=== PATIENT | female | born 1965 | race African-American/Black ===

== ENCOUNTER 2018-12-04 10:11 | Inpatient (IN) | payer OTHER ==
[2018-12-04 11:21] VITALS: BMI 26.5
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
[2018-12-04] MEDS ORDERED: MAGNESIUM CITRATE 300 ML BOTTLE PO PRN (12:42)
[2018-12-04] MEDS ORDERED: chlordiazePOXIDE HCL 10 MG CAPSULE PO PRN (12:42)
[2018-12-04] MEDS ORDERED: ACETAMINOPHEN 325 MG TABLET (FP) PO PRN ×2 (12:42)
[2018-12-04] MEDS ORDERED: IBUPROFEN 400 MG TABLET (FP) PO PRN (12:42)
[2018-12-04] MEDS ORDERED: hydrOXYzine PAMOATE 25 MG CAPSULE (FP) PO PRN (12:42)
[2018-12-04] MEDS ORDERED: MENTHOL/PHENOL 1 EACH UD MM PRN (12:42)
[2018-12-04] MEDS ORDERED: MAGNESIUM HYDROX 2400MG/30ML ORAL SUSPENSION 30 ML CUP PO PRN (12:42)
[2018-12-04] MEDS ORDERED: BISMUTH SUBSALICYLATE 262 MG/15 ML BTL PO PRN (12:42)
[2018-12-04] MEDS ORDERED: MAG HYDROX/AL HYDROX/SIMETH 30 ML UNIT-DOSE CUP PO PRN (12:42)
[2018-12-04] MEDS: chlordiazePOXIDE HCL 25 MG CAPSULE PO SCH ×2 (14:28→22:45)
[2018-12-04] MEDS: METHOCARBAMOL 500 MG TABLET PO PRN ×2 (14:29→22:45)
[2018-12-04 16:50] LABS: HEMATOCRIT 36.1 % (32.4-45.2); HEMOGLOBIN 11.7 GM/dL (10.7-15.3); MCH 26.8 pg (25.7-33.7); MCHC 32.3 g/dl (32.0-36.0); MEAN CELL VOLUME 83.1 fl (80-96); MEAN PLT VOLUME 7.6 fl (7.5-11.1); PLATELET COUNT 305 K/MM3 (134-434); RBC 4.35 M/mm3 (3.60-5.2); RDW 15.5 % (11.6-15.6); WHITE BLOOD COUNT 4.1 K/mm3 (4.0-10.0)
[2018-12-04 16:53] LABS: ALBUMIN 3.5 g/dl (3.4-5.0); BILIRUBIN,TOTAL 0.2 mg/dL (0.2-1); BLOOD UREA NITROGEN 16.1 mg/dL (7-18); CALCIUM 8.8 mg/dL (8.5-10.1); CREATININE 0.8 mg/dL (0.55-1.3); POTASSIUM 4.1 mmol/L (3.5-5.1); TOT PROT 6.7 g/dl (6.4-8.2)
[2018-12-04] MEDS: NICOTINE 21 MG/24 HOURS TOPICAL PATCH TD SCH (17:27)
[2018-12-04] MEDS: THIAMINE HCL 100 MG TABLET (FP) PO SCH (22:46)
[2018-12-04] MEDS: MELATONIN 5 MG TABLETS PO PRN (22:47)
[2018-12-05] MEDS: chlordiazePOXIDE HCL 25 MG CAPSULE PO SCH ×3 (06:54→22:45)
[2018-12-05] MEDS: NICOTINE 21 MG/24 HOURS TOPICAL PATCH TD SCH (10:10)
[2018-12-05] MEDS: PRENATAL VITAMINS W/ FOLIC ACID TABLET (FP) PO SCH (10:10)
[2018-12-05] MEDS: METHOCARBAMOL 500 MG TABLET PO PRN ×2 (10:12→18:41)
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
[2018-12-05] MEDS ORDERED: FLU VACCINE QUAD 60 MCG/0.5 ML (MDV 19-20) IM ONE (12:00)
--- NOTE | 2018-12-05 13:40 | PN ---
S CIWA - CIWA Score Nausea/Vomitin-No Nausea/No Vomiting Muscle Tremors: 4-Moderate,w/Arms Extend Anxiety: 4-Mod. Anxious/Guarded Agitation: 4-Moderately Restless Paroxysmal Sweats: 3 Orientation: 0-Oriented Tacttile Disturbances: 0-None Auditory Disturbances: 0-None Visual Disturbances: 0-None Headache: 0-None Present CIWA-Ar Total Score: 15 BHS Progress Note (SOAP) Subjective: sweats shakes anxiety interrupted sleep body aches Objective: 12/05/18 13:41 Vital Signs Temperature 98.1 F 12/05/18 09:41 Pulse Rate 70 12/05/18 09:41 Respiratory Rate 18 12/05/18 09:41 Blood Pressure 110/73 12/05/18 09:41 O2 Sat by Pulse Oximetry (%) Laboratory Tests 12/04/18 12/04/18 12/04/18 11:34 12:50 12:50 WBC 4.1 RBC 4.35 Hgb 11.7 Hct 36.1 MCV 83.1 MCH 26.8 MCHC 32.3 RDW 15.5 Plt Count 305 MPV 7.6 Sodium 140 Potassium 4.1 Chloride 106 Carbon Dioxide 30 Anion Gap 4 L BUN 16.1 Creatinine 0.8 Est GFR (CKD-EPI)AfAm 98.24 Est GFR (CKD-EPI)NonAf 84.76 Random Glucose 95 Calcium 8.8 Total Bilirubin 0.2 AST 10 L ALT 23 Alkaline Phosphatase 89 Total Protein 6.7 Albumin 3.5 POC Urine HCG, Qual Negative RPR Titer HIV 1&2 Ag/Ab, 4th Gen 12/04/18 12/04/18 12:50 12:50 WBC RBC Hgb Hct MCV MCH MCHC RDW Plt Count MPV Sodium Potassium Chloride Carbon Dioxide Anion Gap BUN Creatinine Est GFR (CKD-EPI)AfAm Est GFR (CKD-EPI)NonAf Random Glucose Calcium Total Bilirubin AST ALT Alkaline Phosphatase Total Protein Albumin POC Urine HCG, Qual RPR Titer Nonreactive HIV 1&2 Ag/Ab, 4th Gen Non reactive labs noted aaox3 ambulating with crutches no acute distress Assessment: 12/05/18 13:42 withdrawals Plan: continue detox with revised updated new regimen increase fluids
[2018-12-05] MEDS: QUEtiapine FUMARATE 50 MG TABLET PO SCH (22:45)
[2018-12-05] MEDS: THIAMINE HCL 100 MG TABLET (FP) PO SCH (22:45)
[2018-12-05] MEDS: MELATONIN 5 MG TABLETS PO PRN (22:45)
[2018-12-06] MEDS ORDERED: chlordiazePOXIDE HCL 10 MG CAPSULE PO SCH (05:00)
[2018-12-06] MEDS: METHOCARBAMOL 500 MG TABLET PO PRN ×3 (05:42→22:22)
[2018-12-06] MEDS: chlordiazePOXIDE HCL 25 MG CAPSULE PO SCH ×2 (05:42→10:14)
[2018-12-06] MEDS: NICOTINE 21 MG/24 HOURS TOPICAL PATCH TD SCH (10:14)
[2018-12-06] MEDS: PRENATAL VITAMINS W/ FOLIC ACID TABLET (FP) PO SCH (10:14)
--- NOTE | 2018-12-06 12:28 | PN ---
S CIWA - CIWA Score Nausea/Vomitin-No Nausea/No Vomiting Muscle Tremors: 2 Anxiety: 3 Agitation: 0-Normal Activity Paroxysmal Sweats: 3 Orientation: 0-Oriented Tacttile Disturbances: 0-None Auditory Disturbances: 0-None Visual Disturbances: 0-None Headache: 2-Mild CIWA-Ar Total Score: 10 BHS Progress Note (SOAP) Subjective: c/o anxiety, sweats, and headache. Objective: 12/06/18 12:26 Vital Signs 12/06/18 12/06/18 06:00 09:44 Temperature 97.9 F 98.9 F Pulse Rate 65 73 Respiratory 18 18 Rate Blood Pressure 113/73 98/62 Lab Results WBC 4.1 K/mm3 (4.0-10.0) 12/04/18 12:50 RBC 4.35 M/mm3 (3.60-5.2) 12/04/18 12:50 Hgb 11.7 GM/dL (10.7-15.3) 12/04/18 12:50 Hct 36.1 % (32.4-45.2) 12/04/18 12:50 MCV 83.1 fl (80-96) 12/04/18 12:50 MCHC 32.3 g/dl (32.0-36.0) 12/04/18 12:50 RDW 15.5 % (11.6-15.6) 12/04/18 12:50 Plt Count 305 K/MM3 (134-434) 12/04/18 12:50 Sodium 140 mmol/L (136-145) 12/04/18 12:50 Potassium 4.1 mmol/L (3.5-5.1) 12/04/18 12:50 Chloride 106 mmol/L (98-107) 12/04/18 12:50 Carbon Dioxide 30 mmol/L (21-32) 12/04/18 12:50 Anion Gap 4 MMOL/L (8-16) L 12/04/18 12:50 BUN 16.1 mg/dL (7-18) 12/04/18 12:50 Creatinine 0.8 mg/dL (0.55-1.3) 12/04/18 12:50 Random Glucose 95 mg/dL (74-106) 12/04/18 12:50 Calcium 8.8 mg/dL (8.5-10.1) 12/04/18 12:50 Labs noted. Assessment: 12/06/18 12:27 AOX3, in no acute respiratory distress. Full ROM, ambulating in the unit. Withdrawal symptoms. Right foot with a cast. Plan: continue detox.
[2018-12-06] MEDS: QUEtiapine FUMARATE 50 MG TABLET PO SCH (22:23)
[2018-12-06] MEDS: THIAMINE HCL 100 MG TABLET (FP) PO SCH (22:23)
[2018-12-07] MEDS ORDERED: chlordiazePOXIDE HCL 10 MG CAPSULE PO ONE (05:00)
[2018-12-07] MEDS: chlordiazePOXIDE 5 MG CAPSULE PO SCH ×3 (05:43→17:43)
[2018-12-07] MEDS: METHOCARBAMOL 500 MG TABLET PO PRN ×2 (05:57→17:44)
[2018-12-07] MEDS: PRENATAL VITAMINS W/ FOLIC ACID TABLET (FP) PO SCH (10:30)
[2018-12-07] MEDS: NICOTINE 21 MG/24 HOURS TOPICAL PATCH TD SCH (10:30)
--- NOTE | 2018-12-07 16:05 | PN ---
[facility] CIWA - CIWA Score Nausea/Vomitin-Mild Nausea/No Vomiting Muscle Tremors: 2 Anxiety: 2 Agitation: 2 Paroxysmal Sweats: 2 Orientation: 0-Oriented Tacttile Disturbances: 0-None Auditory Disturbances: 0-None Visual Disturbances: 0-None Headache: 0-None Present CIWA-Ar Total Score: 9 BHS Progress Note (SOAP) Subjective: Feels ok, medication helpful Objective: 12/07/18 16:02 Last Vital Signs Temp Pulse Resp BP Pulse Ox 98.4 F 85 18 110/60 12/07/18 14:37 12/07/18 14:37 12/07/18 14:37 12/07/18 14:37 Laboratory Tests 12/04/18 12/04/18 12/04/18 11:34 12:50 12:50 WBC 4.1 RBC 4.35 Hgb 11.7 Hct 36.1 MCV 83.1 MCH 26.8 MCHC 32.3 RDW 15.5 Plt Count 305 MPV 7.6 Sodium 140 Potassium 4.1 Chloride 106 Carbon Dioxide 30 Anion Gap 4 L BUN 16.1 Creatinine 0.8 Est GFR (CKD-EPI)AfAm 98.24 Est GFR (CKD-EPI)NonAf 84.76 Random Glucose 95 Calcium 8.8 Total Bilirubin 0.2 AST 10 L ALT 23 Alkaline Phosphatase 89 Total Protein 6.7 Albumin 3.5 POC Urine HCG, Qual Negative RPR Titer HIV 1&2 Ag/Ab, 4th Gen 12/04/18 12/04/18 12:50 12:50 WBC RBC Hgb Hct MCV MCH MCHC RDW Plt Count MPV Sodium Potassium Chloride Carbon Dioxide Anion Gap BUN Creatinine Est GFR (CKD-EPI)AfAm Est GFR (CKD-EPI)NonAf Random Glucose Calcium Total Bilirubin AST ALT Alkaline Phosphatase Total Protein Albumin POC Urine HCG, Qual RPR Titer Nonreactive HIV 1&2 Ag/Ab, 4th Gen Non reactive Labs reviewed Assessment: 12/07/18 16:05 Withdrawal sxs Plan: Continue detox Encouraged PO water intake
[2018-12-07] MEDS: QUEtiapine FUMARATE 50 MG TABLET PO SCH (22:09)
[2018-12-07] MEDS: THIAMINE HCL 100 MG TABLET (FP) PO SCH (22:09)
[2018-12-07] MEDS: MELATONIN 5 MG TABLETS PO PRN (22:10)
[2018-12-08] MEDS ORDERED: chlordiazePOXIDE HCL 10 MG CAPSULE PO PRN
[2018-12-08] MEDS: chlordiazePOXIDE HCL 10 MG CAPSULE PO SCH ×2 (06:17→10:50)
[2018-12-08] MEDS: METHOCARBAMOL 500 MG TABLET PO PRN (06:18)
[2018-12-08 09:41] VITALS: BP 108/62; PULSE 80; TEMP 98.1
--- NOTE | 2018-12-08 09:55 | DS ---
[facility] Detox Discharge Summary Admission Date: 12/04/18 Discharge Date: 12/08/18 - History Present History: Alcohol Dependence, Cannabis Dependence, Cocaine Dependence, Opioid Dependence - Physical Exam Results Vital Signs: Vital Signs Temperature 98.1 F 12/08/18 09:40 Pulse Rate 80 12/08/18 09:40 Respiratory Rate 16 12/08/18 09:40 Blood Pressure 108/62 12/08/18 09:40 O2 Sat by Pulse Oximetry (%) Pertinent Admission Physical Exam Findings: pt arrived in withdrawals Vital Signs Temperature 98.1 F 12/08/18 09:40 Pulse Rate 80 12/08/18 09:40 Respiratory Rate 16 12/08/18 09:40 Blood Pressure 108/62 12/08/18 09:40 O2 Sat by Pulse Oximetry (%) Laboratory Tests 12/04/18 12/04/18 12/04/18 11:34 12:50 12:50 WBC 4.1 RBC 4.35 Hgb 11.7 Hct 36.1 MCV 83.1 MCH 26.8 MCHC 32.3 RDW 15.5 Plt Count 305 MPV 7.6 Sodium 140 Potassium 4.1 Chloride 106 Carbon Dioxide 30 Anion Gap 4 L BUN 16.1 Creatinine 0.8 Est GFR (CKD-EPI)AfAm 98.24 Est GFR (CKD-EPI)NonAf 84.76 Random Glucose 95 Calcium 8.8 Total Bilirubin 0.2 AST 10 L ALT 23 Alkaline Phosphatase 89 Total Protein 6.7 Albumin 3.5 POC Urine HCG, Qual Negative RPR Titer HIV 1&2 Ag/Ab, 4th Gen 12/04/18 12/04/18 12:50 12:50 WBC RBC Hgb Hct MCV MCH MCHC RDW Plt Count MPV Sodium Potassium Chloride Carbon Dioxide Anion Gap BUN Creatinine Est GFR (CKD-EPI)AfAm Est GFR (CKD-EPI)NonAf Random Glucose Calcium Total Bilirubin AST ALT Alkaline Phosphatase Total Protein Albumin POC Urine HCG, Qual RPR Titer Nonreactive HIV 1&2 Ag/Ab, 4th Gen Non reactive pt is aaox3 ambulating no acute distress no s/s of withdrawals - Treatment Hospital Course: Detox Protocol Followed, Detoxed Safely, Responded well, Discharged Condition Good, Rehab Referral Accepted Patient has Accepted a Rehab Referral to: pt declined rehab; referral provided - Medication Discharge Medications: Ambulatory Orders NK [No Known Home Medication] 09/20/14 - Diagnosis (1) Alcohol dependence Current Visit: Yes Status: Chronic (2) Cocaine dependence Current Visit: Yes Status: Chronic (3) Substance induced mood disorder Current Visit: Yes Status: Acute (4) Substance-induced sleep disorder Current Visit: Yes Status: Acute (5) Cannabis dependence Current Visit: Yes Status: Acute (6) Nicotine dependence Current Visit: Yes Status: Chronic Qualifiers: Nicotine product type: cigarettes Substance use status: uncomplicated Qualified Code(s): F17.210 - Nicotine dependence, cigarettes, uncomplicated (7) Syncope Current Visit: No Status: Acute (8) PTSD (post-traumatic stress disorder) Current Visit: No Status: Suspected (9) Foot fracture, right Current Visit: Yes Status: Acute Qualifiers: Encounter type: initial encounter Fracture type: closed Qualified Code(s) : S92.901A - Unspecified fracture of right foot, initial encounter for closed fracture - AMA Did Patient Leave Against Medical Advice: No
[2018-12-08] MEDS: NICOTINE 21 MG/24 HOURS TOPICAL PATCH TD SCH (10:51)
[2018-12-08] MEDS: PRENATAL VITAMINS W/ FOLIC ACID TABLET (FP) PO SCH (10:51)
[2018-12-09] MEDS ORDERED: chlordiazePOXIDE HCL 10 MG CAPSULE PO ONE (05:00)
== END 2018-12-08 11:35 | disposition home or self-care (01) | DRG 774 ==
LOC: YASAS 10:11 → Y6N 12:57
PROVIDERS: ADMIT Allergy & Immunology; ATTEND Allergy & Immunology
PROC: HZ2ZZZZ Detoxification Services for Substance Abuse Treatment (ICD-10-PCS; principal; 2018-12-04)
DX: F10.230 Alcohol dependence with withdrawal, uncomplicated (principal); F14.20 Cocaine dependence, uncomplicated; F12.20 Cannabis dependence, uncomplicated; F17.210 Nicotine dependence, cigarettes, uncomplicated; F19.282 Other psychoactive substance dependence with psychoactive substance-induced sleep disorder; F19.24 Other psychoactive substance dependence with psychoactive substance-induced mood disorder; F43.10 Post-traumatic stress disorder, unspecified; J45.909 Unspecified asthma, uncomplicated; S92.811D Other fracture of right foot, subsequent encounter for fracture with routine healing; W03.XXXD Other fall on same level due to collision with another person, subsequent encounter; Z99.3 Dependence on wheelchair; Z99.89 Dependence on other enabling machines and devices
CPT/HCPCS: 36415; 80053; 81025; 85027; 86593; 87389; Q2036

== ENCOUNTER 2019-10-07 14:03 | Inpatient (IN) | payer OTHER ==
[2019-10-07 16:23] VITALS: BMI 26.5
--- NOTE | 2019-10-07 17:07 | HP ---
CIWA Score Nausea/Vomitin Muscle Tremors: 4-Moderate,w/Arms Extend Anxiety: 1-Mildly Anxious Agitation: 1-Slight > Activity Paroxysmal Sweats: 3 Orientation: 1-Uncertain about Date Tacttile Disturbances: 0-None Auditory Disturbances: 0-None Visual Disturbances: 0-None Headache: 0-None Present CIWA-Ar Total Score: 13 - Admission Criteria OASAS Guidelines: Admission for Medically Managed Detox: Requires at least one of the followin. CIWA greater than 12 2. Seizures within the past 24 hours 3. Delirium tremens within the past 24 hours 4. Hallucinations within the past 24 hours 5. Acute intervention needed for co occurring medical disorder 6. Acute intervention needed for co occurring psychiatric disorder 7. Severe withdrawal that cannot be handled at a lower level of care (continued vomiting, continued diarrhea, abnormal vital signs) requiring intravenous medication and/or fluids 8. Admitting History and Physical - Admission Chief Complaint: alcohol, crack detox History of Present Illness: CC: detox for alcohol, crack, benzo's, marijuana HPI: Shar is a 54 year old woman PMH of asthma, polysubstance abuse (alcohol, crack, benzo's, marijuana, nicotine), who presents for detox. She has attempted detox several times, and was last admitted at [facility] from 12/04/18 to 12/08/18. No recent illnesses, hospitalizations, or injuries. She is complaining of vaginal pruritis and requests medication. Substance Use History: Substance: Alcohol Amount: 6 pack beer, three 12 ounce bottles of vodka Route: oral Last Use: 10/06/19 First Use: 20 No seizures, positive eye weight calculator Substance: Crack Amount:$200/day Route: sm Last Use: 10/06/19 First Use: Substance: Benzo's Amount:1-2 tablets/day Route: oral Last Use: 10/06/19 Substance: Marijuana Amount: 1 bag/day Last Use: 10/06/19 Substance: Nicotine Amount: 1 pack/day PMH: Asthma PSH: Ovarian cystectomy (right side), oophorectomy Psych: History of bipolar disorder, previously on seroquel 100 Social: Homeless 4 months Legal: None History Source: Patient Limitations to Obtaining History: No Limitations - Past Medical History ...LMP: 09/06/14 - Smoking History Smoking history: Current every day smoker Have you smoked in the past 12 months: Yes Aproximately how many cigarettes per day: 10 - Alcohol/Substance Use Hx Alcohol Use: Yes History of Substance Use: reports: Marijuana - Social History Usual Living Arrangement: Yes: Other (homeless the past 4 months) Admission [facility] Chief Complaint: detox for alcohol, crack, benzo's, marijuana Allergies/Adverse Reactions: Allergies Allergy/AdvReac Type Severity Reaction Status Date / Time No Known Allergies Allergy Verified 12/04/18 11:14 History of Present Illness: CC: detox for alcohol, crack, benzo's, marijuana HPI: Shar is a 54 year old woman PMH of asthma, polysubstance abuse (alcohol, crack, benzo's, marijuana, nicotine), who presents for detox. She has attempted detox several times, and was last admitted at [facility] from 12/04/18 to 12/08/18. No recent illnesses, hospitalizations, or injuries. She is complaining of vaginal pruritis and requests medication. Substance Use History: Substance: Alcohol Amount: 6 pack beer, three 12 ounce bottles of vodka Route: oral Last Use: 10/06/19 First Use: 19 No seizures, positive eye weight calculator Substance: Crack Amount:$200/day Route: sm Last Use: 10/06/19 First Use: Substance: Benzo's Amount:1-2 tablets/day Route: oral Last Use: 10/06/19 Substance: Marijuana Amount: 1 bag/day Last Use: 10/06/19 Substance: Nicotine Amount: 1 pack/day PMH: Asthma PSH: Ovarian cystectomy (right side), oophorectomy Psych: History of bipolar disorder, previously on seroquel 100 Social: Homeless 4 months Legal: None Exam Limitations: No Limitations - Ebola screening Have you traveled outside of the country in the last 21 days: No Have you had contact with anyone from an Ebola affected area: No Have you been sick,other than usual withdrawal symptoms: No Do you have a fever: No - Review of Systems EENT: denies: Eye Pain, Ear Pain, Nose Congestion Respiratory: denies: Cough, Shortness of Breath Cardiac: denies: Chest Pain GI: denies: Constipated, Diarrhea, Nausea, Vomiting : reports: Other (vaginal pruritis) Musculoskeletal: denies: Back Pain, Joint Pain Integumentary: reports: Pruritus (vaginal pruritis) Neuro: denies: Headache, Numbness Endocrine: reports: No Symptoms Reported Hematology: denies: Blood Clots Psychiatric: reports: Orientated x3 Patient History - Patient Medical History Hx Anemia: No Hx Asthma: Yes Hx Chronic Obstructive Pulmonary Disease (COPD): No Hx Cancer: No Hx Cardiac Disorders: No Hx Congestive Heart Failure: No Hx Hypertension: No Hx Hypercholesterolemia: No Hx Pacemaker: No HX Cerebrovascular Accident: No Hx Seizures: No Hx Dementia: No Hx Diabetes: No Hx Gastrointestinal Disorders: No Hx Liver Disease: No Hx Genitourinary Disorders: No Hx Sexually Transmitted Disorders: No Hx Renal Disease (ESRD): No Hx Thyroid Disease: No Hx Human Immunodeficiency Virus (HIV): No (LAST NEGATIVE IN 07/02) Hx Hepatitis C: No Hx Depression: Yes Hx Suicide Attempt: No Hx Bipolar Disorder: No Hx Schizophrenia: No - Patient Surgical History Past Surgical History: Yes Hx Neurologic Surgery: No Hx Cataract Extraction: No Hx Cardiac Surgery: No Hx Lung Surgery: No Hx Breast Surgery: No Hx Breast Biopsy: No Hx Abdominal Surgery: No Hx Appendectomy: No Hx Cholecystectomy: No Hx Genitourinary Surgery: No Hx Section: No Hx Orthopedic Surgery: No Other Surgical History: SURGERY FOR OVARIAN CYST RIGHT 30 YEARS AGO Anesthesia Reaction: No - PPD History Date: 12/06/18 Results: Negative - Reproductive History Last Menstrual Period: 09/06/14 - Smoking Cessation Smoking history: Current every day smoker Have you smoked in the past 12 months: Yes Aproximately how many cigarettes per day: 5 Cigars Per Day: 0 Hx Chewing Tobacco Use: No Initiated information on smoking cessation: Yes 'Breaking Loose' booklet given: 10/07/19 Admission Physical Exam S - Vital Signs Vital Signs: Vital Signs - 24 hr 10/07/19 16:21 Temperature 97.1 F L Pulse Rate 72 Respiratory 19 Rate Blood Pressure 128/80 - Physical General Appearance: Yes: Within Normal Limits, Disheveled, Anxious HEENTM: Yes: Hearing grossly Normal, Normocephalic, Normal Voice, KEMAL Respiratory: Yes: Rhonchi (bilateral rhonchi present) Neck: Yes: Within Normal Limits Breast: Yes: Breast Exam Deferred Cardiology: Yes: Within Normal Limits, Regular Rhythm, Regular Rate, S1, S2 Abdominal: Yes: Non Tender, Flat, Soft Genitourinary: Yes: [place] Back: Yes: Within Normal Limits Musculoskeletal: Yes: Within Normal Limits, full range of Motion, Gait Steady Extremities: Yes: Within Normal Limits, Normal Inspection, Normal Range of Motion, Non-Tender, Tremors. No: Coldness, Cyanosis Neurological: Yes: Within Normal Limits, Alert, Motor Strength 5/5, Normal Mood/Affect, Normal Response Integumentary: Yes: Within Normal Limits, Normal Color, Dry, Warm - Diagnostic (1) Alcohol withdrawal Current Visit: Yes Status: Acute Qualifiers: Complication of substance-induced condition: uncomplicated Qualified Code(s): F10.230 - Alcohol dependence with withdrawal, uncomplicated (2) Cocaine dependence Current Visit: Yes Status: Acute (3) Nicotine dependence Current Visit: Yes Status: Chronic Qualifiers: Nicotine product type: cigarettes Substance use status: uncomplicated Qualified Code(s): F17.210 - Nicotine dependence, cigarettes, uncomplicated Cleared for Admission S - Detox or Rehab [facility] Level of Care: Medically Managed Screened but not Admitted - Documentation of Visit Screened but not Admitted: No Breathalyzer - Breathalyzer Breathalyzer: 0 Urine Drug Screen - Test Device Lot number: [id number] Expiration date: 05/26/21 - Control Is test valid?: Yes - Results Drug screen NEGATIVE: No Urine drug screen results: THC-Marijuana, SHOLA-Cocaine Inpatient Rehab Admission - Rehab Decision to Admit Inpatient rehab admission?: No
[2019-10-07] MEDS ORDERED: IBUPROFEN 400 MG TABLET (FP) PO PRN (17:26)
[2019-10-07] MEDS ORDERED: MAGNESIUM CITRATE 300 ML BOTTLE PO PRN (17:26)
[2019-10-07] MEDS ORDERED: METHOCARBAMOL 500 MG TABLET PO PRN (17:26)
[2019-10-07] MEDS ORDERED: BISMUTH SUBSALICYLATE 524 MG/30 ML UD PO PRN (17:26)
[2019-10-07] MEDS ORDERED: MENTHOL/PHENOL 1 EACH UD MM PRN (17:26)
[2019-10-07] MEDS ORDERED: ONDANSETRON *ODT* 4 MG TABLET SL ONE (17:26)
[2019-10-07] MEDS ORDERED: NICOTINE POLACRILEX 2 MG GUM BUC PRN (17:26)
[2019-10-07] MEDS ORDERED: MAG HYDROX/AL HYDROX/SIMETH 30 ML UNIT-DOSE CUP PO PRN (17:26)
[2019-10-07] MEDS ORDERED: ONDANSETRON *ODT* 4 MG TABLET SL PRN (17:26)
[2019-10-07] MEDS ORDERED: chlordiazePOXIDE HCL 25 MG CAPSULE PO PRN (17:26)
[2019-10-07] MEDS ORDERED: MAGNESIUM HYDROX 2400MG/30ML ORAL SUSPENSION 30 ML CUP PO PRN (17:26)
[2019-10-07] MEDS ORDERED: ACETAMINOPHEN 325 MG TABLET (FP) PO PRN ×2 (17:26)
[2019-10-07] MEDS ORDERED: ALBUTEROL SO4 HFA INHALER IH PRN (17:44)
[2019-10-07] MEDS ORDERED: FLUCONAZOLE 150 MG TABLET PO ONE (18:30)
--- NOTE | 2019-10-07 18:30 | PN ---
Teaching Attending Note Name of Resident: Muna Diaz ATTENDING PHYSICIAN STATEMENT I saw and evaluated the patient. I reviewed the resident's note and discussed the case with the resident. I agree with the resident's findings and plan as documented. SUBJECTIVE: 53 year old female here for etoh detox , + BLACKOUTS , DENIES SEIZURES , + TREMORS . c/o vaginal d/c Cocaine: $50 via inhalation , denies IV use , first age of use 20 . Cigarettes: 1/ ppd Heroin: last used in 2014 via inhalation , denies mmtp . Benzos: denies use PMHx : asthma, R foot (fractured 5th metatarsal) 2/2 mechanical fall, fall while intoxicated 1 yr ago w/ right hand frx casted, ovarian cyst, oophorectomy , Psych hx : ptsd, depression Family: mother d. DM and ESRD 60's , father d. etoh abuse complications 50's Work: On disability since 2 yr ago 2/2 feet problems and psych hx , former factor worker Live: [place] OBJECTIVE: wnwd , onychomycosis , hammer toes , hallux valgus . Vital Signs - 24 hr 10/07/19 10/07/19 16:21 17:36 Temperature 97.1 F L 97.1 F L Pulse Rate 72 72 Respiratory 19 19 Rate Blood Pressure 128/80 128/80 ASSESSMENT AND PLAN: AUD - Librium detox
[2019-10-07] MEDS: NICOTINE 14 MG/24 HOURS TOPICAL PATCH TD SCH (19:11)
[2019-10-07] MEDS: chlordiazePOXIDE HCL 25 MG CAPSULE PO SCH (22:11)
[2019-10-07] MEDS: THIAMINE HCL 100 MG TABLET (FP) PO SCH (22:11)
[2019-10-07] MEDS: MELATONIN 5 MG TABLETS PO SCH (22:11)
[2019-10-07] MEDS: MICONAZOLE NITRATE 14 GM/TUBE TUBE TP SCH (22:14)
[2019-10-08] MEDS: chlordiazePOXIDE HCL 25 MG CAPSULE PO SCH ×4 (06:09→22:41)
[2019-10-08] MEDS: PRENATAL VITAMINS W/ FOLIC ACID TABLET (FP) PO SCH (10:35)
[2019-10-08] MEDS: NICOTINE 14 MG/24 HOURS TOPICAL PATCH TD SCH (10:35)
[2019-10-08 10:39] LABS: HEMATOCRIT 33.5 % (32.4-45.2); MCH 26.9 pg (25.7-33.7); MCHC 32.8 g/dl (32.0-36.0); MEAN CELL VOLUME 81.9 fl (80-96); MEAN PLT VOLUME 7.5 fl (7.5-11.1); PLATELET COUNT 289 K/MM3 (134-434); RBC 4.09 M/mm3 (3.60-5.2); RDW 15.9 % (11.6-15.6); WHITE BLOOD COUNT 3.6 K/mm3 (4.0-10.0)
[2019-10-08 10:52] LABS: ALBUMIN 2.9 g/dl (3.4-5.0); BILIRUBIN,TOTAL 0.9 mg/dL (0.2-1); BLOOD UREA NITROGEN 14.1 mg/dL (7-18); CALCIUM 8.7 mg/dL (8.5-10.1); CREATININE 0.8 mg/dL (0.55-1.3); POTASSIUM 4.1 mmol/L (3.5-5.1); TOT PROT 5.7 g/dl (6.4-8.2)
--- NOTE | 2019-10-08 12:18 | PN ---
[facility] CIWA - CIWA Score Nausea/Vomitin-No Nausea/No Vomiting Muscle Tremors: 3 Anxiety: 2 Agitation: 3 Paroxysmal Sweats: 3 Orientation: 0-Oriented Tacttile Disturbances: 0-None Auditory Disturbances: 0-None Visual Disturbances: 0-None Headache: 0-None Present CIWA-Ar Total Score: 11 S Progress Note (SOAP) Subjective: sweats shakes chills body aches interrupted sleep Objective: 10/08/19 12:12 Vital Signs Temperature 98.4 F 10/08/19 08:34 Pulse Rate 73 10/08/19 08:34 Respiratory Rate 20 10/08/19 08:34 Blood Pressure 101/54 L 10/08/19 08:34 O2 Sat by Pulse Oximetry (%) 96 10/08/19 05:37 Laboratory Tests 10/07/19 10/08/19 10/08/19 16:22 08:00 08:00 WBC 3.6 L RBC 4.09 Hgb 11.0 Hct 33.5 MCV 81.9 MCH 26.9 MCHC 32.8 RDW 15.9 H Plt Count 289 MPV 7.5 Sodium Potassium Chloride Carbon Dioxide Anion Gap BUN Creatinine Est GFR (CKD-EPI)AfAm Est GFR (CKD-EPI)NonAf Random Glucose Calcium Total Bilirubin AST ALT Alkaline Phosphatase Total Protein Albumin POC Urine HCG, Qual Negative Syphilis Serology Reactive A* 10/08/19 08:00 WBC RBC Hgb Hct MCV MCH MCHC RDW Plt Count MPV Sodium 143 Potassium 4.1 Chloride 110 H Carbon Dioxide 26 Anion Gap 6 L BUN 14.1 Creatinine 0.8 Est GFR (CKD-EPI)AfAm 97.55 Est GFR (CKD-EPI)NonAf 84.17 Random Glucose 82 Calcium 8.7 Total Bilirubin 0.9 AST 6 L ALT 16 Alkaline Phosphatase 59 Total Protein 5.7 L Albumin 2.9 L POC Urine HCG, Qual Syphilis Serology labs noted aaox3 ambulating no acute distress syphilis rpr pending Assessment: 10/08/19 12:18 withdrawals Plan: continue detox increase fluids
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
[2019-10-08] MEDS: MICONAZOLE NITRATE 14 GM/TUBE TUBE TP SCH ×2 (13:57→22:43)
[2019-10-08] MEDS: QUEtiapine FUMARATE 50 MG TABLET PO SCH (22:41)
[2019-10-08] MEDS: THIAMINE HCL 100 MG TABLET (FP) PO SCH (22:41)
[2019-10-08] MEDS: MELATONIN 5 MG TABLETS PO SCH (22:41)
[2019-10-09] MEDS: chlordiazePOXIDE HCL 25 MG CAPSULE PO SCH ×4 (06:28→22:29)
[2019-10-09] MEDS: PRENATAL VITAMINS W/ FOLIC ACID TABLET (FP) PO SCH (10:42)
[2019-10-09] MEDS: MICONAZOLE NITRATE 14 GM/TUBE TUBE TP SCH ×2 (10:42→22:30)
[2019-10-09] MEDS: NICOTINE 14 MG/24 HOURS TOPICAL PATCH TD SCH (10:42)
--- NOTE | 2019-10-09 10:49 | PN ---
S CIWA - CIWA Score Nausea/Vomitin-Mild Nausea/No Vomiting Muscle Tremors: 2 Anxiety: 1-Mildly Anxious Agitation: 1-Slight > Activity Paroxysmal Sweats: No Perspiration Orientation: 0-Oriented Tacttile Disturbances: 0-None Auditory Disturbances: 0-None Visual Disturbances: 0-None Headache: 1-Very Mild CIWA-Ar Total Score: 6 [facility] Progress Note (SOAP) Subjective: pt admitted for alcohol detox. h/o polysubstance use. O: Vital Signs - 24 hr 10/08/19 10/08/19 10/08/19 13:12 17:10 20:54 Temperature 97.7 F 98.2 F Pulse Rate 71 72 Respiratory 18 18 Rate Blood Pressure 104/63 119/73 O2 Sat by Pulse 98 97 Oximetry (%) 10/09/19 10/09/19 06:18 08:37 Temperature 97.7 F 97.7 F Pulse Rate 68 84 Respiratory 18 16 Rate Blood Pressure 111/70 129/79 O2 Sat by Pulse 97 Oximetry (%) Laboratory Tests 10/07/19 10/08/19 10/08/19 16:22 08:00 08:00 WBC 3.6 L RBC 4.09 Hgb 11.0 Hct 33.5 MCV 81.9 MCH 26.9 MCHC 32.8 RDW 15.9 H Plt Count 289 MPV 7.5 Sodium Potassium Chloride Carbon Dioxide Anion Gap BUN Creatinine Est GFR (CKD-EPI)AfAm Est GFR (CKD-EPI)NonAf Random Glucose Calcium Total Bilirubin AST ALT Alkaline Phosphatase Total Protein Albumin POC Urine HCG, Qual Negative Syphilis Serology Reactive A* RPR Titer 10/08/19 10/08/19 08:00 08:00 WBC RBC Hgb Hct MCV MCH MCHC RDW Plt Count MPV Sodium 143 Potassium 4.1 Chloride 110 H Carbon Dioxide 26 Anion Gap 6 L BUN 14.1 Creatinine 0.8 Est GFR (CKD-EPI)AfAm 97.55 Est GFR (CKD-EPI)NonAf 84.17 Random Glucose 82 Calcium 8.7 Total Bilirubin 0.9 AST 6 L ALT 16 Alkaline Phosphatase 59 Total Protein 5.7 L Albumin 2.9 L POC Urine HCG, Qual Syphilis Serology RPR Titer Reactive 1:1 H D mild anemia pos low 1:1 RPR pos low albumin a/p: AUD- continue alcohol detox- malnourished with low albumin and protein- encourage food intake
[2019-10-09] MEDS: QUEtiapine FUMARATE 50 MG TABLET PO SCH (22:29)
[2019-10-09] MEDS: THIAMINE HCL 100 MG TABLET (FP) PO SCH (22:29)
[2019-10-09] MEDS: MELATONIN 5 MG TABLETS PO SCH (22:29)
[2019-10-10] MEDS ORDERED: chlordiazePOXIDE HCL 10 MG CAPSULE PO PRN
[2019-10-10] MEDS: chlordiazePOXIDE HCL 10 MG CAPSULE PO SCH ×2 (06:30→10:39)
[2019-10-10] MEDS: NICOTINE 14 MG/24 HOURS TOPICAL PATCH TD SCH (10:38)
[2019-10-10] MEDS: PRENATAL VITAMINS W/ FOLIC ACID TABLET (FP) PO SCH (10:40)
[2019-10-10] MEDS: MICONAZOLE NITRATE 14 GM/TUBE TUBE TP SCH (10:40)
[2019-10-10 10:48] VITALS: BP 103/65; PULSE 79; TEMP 97.5
--- NOTE | 2019-10-10 12:43 | DS ---
[facility] Detox Discharge Summary Admission Date: 10/07/19 Discharge Date: 10/10/19 - History Present History: Alcohol Dependence, Cannabis Dependence, Cocaine Dependence Additional Comments: Alert and oriented x 3, in no acute respiratory distress. Full ROM, ambulating in the unit without assistance. Withdrawal symptoms. Wanted to leave against medical advice, encouraged to stay but refused. Pertinent Past History: History of Asthma, alcohol, crack, benzo, Cannabis and nicotine use disorder - Physical Exam Results Vital Signs: Vital Signs Temperature 97.5 F L 10/10/19 08:59 Pulse Rate 79 10/10/19 08:59 Respiratory Rate 20 10/10/19 08:59 Blood Pressure 103/65 10/10/19 08:59 O2 Sat by Pulse Oximetry (%) 96 10/10/19 08:59 Vital Signs 10/10/19 08:59 Temperature 97.5 F L Pulse Rate 79 Respiratory 20 Rate Blood Pressure 103/65 O2 Sat by Pulse 96 Oximetry (%) Laboratory Last Values WBC 3.6 K/mm3 (4.0-10.0) L 10/08/19 08:00 RBC 4.09 M/mm3 (3.60-5.2) 10/08/19 08:00 Hgb 11.0 GM/dL (10.7-15.3) 10/08/19 08:00 Hct 33.5 % (32.4-45.2) 10/08/19 08:00 MCV 81.9 fl (80-96) 10/08/19 08:00 MCH 26.9 pg (25.7-33.7) 10/08/19 08:00 MCHC 32.8 g/dl (32.0-36.0) 10/08/19 08:00 RDW 15.9 % (11.6-15.6) H 10/08/19 08:00 Plt Count 289 K/MM3 (134-434) 10/08/19 08:00 MPV 7.5 fl (7.5-11.1) 10/08/19 08:00 Sodium 143 mmol/L (136-145) 10/08/19 08:00 Potassium 4.1 mmol/L (3.5-5.1) 10/08/19 08:00 Chloride 110 mmol/L (98-107) H 10/08/19 08:00 Carbon Dioxide 26 mmol/L (21-32) 10/08/19 08:00 Anion Gap 6 MMOL/L (8-16) L 10/08/19 08:00 BUN 14.1 mg/dL (7-18) 10/08/19 08:00 Creatinine 0.8 mg/dL (0.55-1.3) 10/08/19 08:00 Est GFR (CKD-EPI)AfAm 97.55 10/08/19 08:00 Est GFR (CKD-EPI)NonAf 84.17 10/08/19 08:00 Random Glucose 82 mg/dL (74-106) 10/08/19 08:00 Calcium 8.7 mg/dL (8.5-10.1) 10/08/19 08:00 Total Bilirubin 0.9 mg/dL (0.2-1) 10/08/19 08:00 AST 6 U/L (15-37) L 10/08/19 08:00 ALT 16 U/L (13-61) 10/08/19 08:00 Alkaline Phosphatase 59 U/L (45-117) 10/08/19 08:00 Total Protein 5.7 g/dl (6.4-8.2) L 10/08/19 08:00 Albumin 2.9 g/dl (3.4-5.0) L 10/08/19 08:00 POC Urine HCG, Qual Negative 10/07/19 16:22 Syphilis Serology Reactive (NONREACTIVE) A* 10/08/19 08:00 RPR Titer Reactive 1:1 (NONREACTIVE) H D 10/08/19 08:00 COVID-19 (ZACK) Not detected (Not Detected) 10/07/19 20:20 Labs noted. Pertinent Admission Physical Exam Findings: Withdrawal symptoms. - Medication Discharge Medications: Ambulatory Orders Albuterol Sulfate [Proventil Hfa] 1 puff PO PRN PRN 10/07/19 Quetiapine Fumarate [Seroquel -] 100 mg PO DAILY 10/07/19 - Diagnosis (1) Alcohol dependence, uncomplicated Status: Acute (2) Cannabis dependence Status: Chronic (3) Cocaine dependence Status: Chronic (4) Alcohol dependence Status: Chronic (5) Asthma Status: Chronic (6) Nicotine dependence Status: Chronic Qualifiers: Nicotine product type: cigarettes Substance use status: uncomplicated Qualified Code(s): F17.210 - Nicotine dependence, cigarettes, uncomplicated - AMA Did Patient Leave Against Medical Advice: Yes CIWA Score - CIWA Score Nausea/Vomitin-No Nausea/No Vomiting Muscle Tremors: 2 Anxiety: 1-Mildly Anxious Agitation: 2 Paroxysmal Sweats: 1-Minimal Palms Moist Orientation: 0-Oriented Tacttile Disturbances: 0-None Auditory Disturbances: 0-None Visual Disturbances: 0-None Headache: 0-None Present CIWA-Ar Total Score: 6
[2019-10-11] MEDS ORDERED: chlordiazePOXIDE HCL 10 MG CAPSULE PO SCH (05:00)
[2019-10-12] MEDS ORDERED: chlordiazePOXIDE HCL 10 MG CAPSULE PO ONE (05:00)
== END 2019-10-10 12:05 | disposition left against medical advice (07) | DRG 770 ==
LOC: YASAS 14:03 → Y6N 18:21
PROVIDERS: ADMIT Allergy & Immunology; ATTEND Allergy & Immunology
PROC: HZ2ZZZZ Detoxification Services for Substance Abuse Treatment (ICD-10-PCS; principal; 2019-10-07)
DX: F10.230 Alcohol dependence with withdrawal, uncomplicated (principal); F13.20 Sedative, hypnotic or anxiolytic dependence, uncomplicated; F14.20 Cocaine dependence, uncomplicated; F12.20 Cannabis dependence, uncomplicated; F17.210 Nicotine dependence, cigarettes, uncomplicated; F19.282 Other psychoactive substance dependence with psychoactive substance-induced sleep disorder; F19.24 Other psychoactive substance dependence with psychoactive substance-induced mood disorder; F31.9 Bipolar disorder, unspecified; F43.10 Post-traumatic stress disorder, unspecified; F39 Unspecified mood [affective] disorder; J45.909 Unspecified asthma, uncomplicated; L29.2 Pruritus vulvae; Z62.810 Personal history of physical and sexual abuse in childhood; Z87.81 Personal history of (healed) traumatic fracture; Z56.0 Unemployment, unspecified; Z59.0 Homelessness
CPT/HCPCS: 36415; 80053; 81025; 85027; 86593; 86780; U0003

== ENCOUNTER 2020-12-22 13:29 | Inpatient (IN) | payer OTHER ==
[2020-12-22] MEDS ORDERED: NICOTINE 10 MG CARTRIDGE (INHALER) IH PRN (14:02)
[2020-12-22] MEDS ORDERED: ONDANSETRON *ODT* 4 MG TABLET SL PRN (14:02)
[2020-12-22] MEDS ORDERED: MAGNESIUM HYDROX 2400MG/30ML ORAL SUSPENSION 30 ML CUP PO PRN (14:02)
[2020-12-22] MEDS ORDERED: BISMUTH SUBSALICYLATE 524 MG/30 ML PO PRN (14:02)
[2020-12-22] MEDS ORDERED: MAG HYDROX/AL HYDROX/SIMETH 30 ML UNIT-DOSE CUP PO PRN (14:02)
[2020-12-22] MEDS ORDERED: MENTHOL/PHENOL 1 EACH UD MM PRN (14:02)
[2020-12-22] MEDS ORDERED: IBUPROFEN 400 MG TABLET (FP) PO PRN (14:02)
[2020-12-22] MEDS ORDERED: MAGNESIUM CITRATE 300 ML BOTTLE PO PRN (14:02)
[2020-12-22] MEDS ORDERED: ACETAMINOPHEN 325 MG TABLET (FP) PO PRN ×2 (14:02)
[2020-12-22 14:12] VITALS: BMI 25.8
[2020-12-22] MEDS: diazePAM 5 MG TABLET PO PRN (16:06)
[2020-12-22] MEDS: PRENATAL VITAMINS W/ FOLIC ACID TABLET (FP) PO SCH (16:07)
[2020-12-22] MEDS: NICOTINE 14 MG/24 HOURS TOPICAL PATCH TD SCH (16:15)
[2020-12-22] MEDS ORDERED: FLUCONAZOLE 150 MG TABLET PO ONE (16:36)
[2020-12-22] MEDS: valACYclovir HCL 500 MG TABLET (FP) PO SCH ×2 (18:13→22:51)
[2020-12-22] MEDS: hydrOXYzine PAMOATE 25 MG CAPSULE (FP) PO SCH ×2 (18:14→22:55)
[2020-12-22] MEDS: diazePAM 5 MG TABLET PO SCH ×2 (18:14→22:51)
[2020-12-22] MEDS: MELATONIN 5 MG TABLETS PO SCH (22:51)
[2020-12-22] MEDS: THIAMINE HCL 100 MG TABLET (FP) PO SCH (22:51)
[2020-12-23] MEDS: hydrOXYzine PAMOATE 25 MG CAPSULE (FP) PO SCH ×5 (06:26→22:22)
[2020-12-23] MEDS: diazePAM 5 MG TABLET PO SCH ×4 (06:26→22:22)
[2020-12-23] MEDS: NICOTINE 14 MG/24 HOURS TOPICAL PATCH TD SCH (10:33)
[2020-12-23] MEDS: PRENATAL VITAMINS W/ FOLIC ACID TABLET (FP) PO SCH (10:33)
[2020-12-23] MEDS: valACYclovir HCL 500 MG TABLET (FP) PO SCH ×2 (10:33→22:22)
[2020-12-23] MEDS: METHOCARBAMOL 500 MG TABLET PO PRN ×2 (10:33→17:12)
[2020-12-23 10:41] LABS: HEMATOCRIT 34.6 % (32.4-45.2); HEMOGLOBIN 11.6 GM/dL (10.7-15.3); MCH 27.2 pg (25.7-33.7); MCHC 33.6 g/dl (32.0-36.0); MEAN CELL VOLUME 81.1 fl (80-96); MEAN PLT VOLUME 7.5 fl (7.5-11.1); PLATELET COUNT 247 10^3/uL (134-434); RBC 4.26 M/mm3 (3.60-5.2)
[2020-12-23 11:06] LABS: CALCIUM 8.5 mg/dL (8.5-10.1)
[2020-12-23 11:10] LABS: CREATININE 0.8 mg/dL (0.55-1.3)
[2020-12-23 11:12] LABS: BILIRUBIN,TOTAL 0.6 mg/dL (0.2-1); TOT PROT 6.1 g/dl (6.4-8.2)
[2020-12-23 11:20] LABS: BLOOD UREA NITROGEN 14.8 mg/dL (7-18)
[2020-12-23] MEDS: MELATONIN 5 MG TABLETS PO SCH (22:21)
[2020-12-23] MEDS: THIAMINE HCL 100 MG TABLET (FP) PO SCH (22:22)
[2020-12-24] MEDS: hydrOXYzine PAMOATE 25 MG CAPSULE (FP) PO SCH ×5 (06:31→22:24)
[2020-12-24] MEDS: diazePAM 5 MG TABLET PO SCH ×3 (06:32→22:24)
[2020-12-24] MEDS: METHOCARBAMOL 500 MG TABLET PO PRN ×2 (10:10→22:26)
[2020-12-24] MEDS: PRENATAL VITAMINS W/ FOLIC ACID TABLET (FP) PO SCH (10:10)
[2020-12-24] MEDS: valACYclovir HCL 500 MG TABLET (FP) PO SCH ×2 (10:10→23:41)
[2020-12-24] MEDS: NICOTINE 14 MG/24 HOURS TOPICAL PATCH TD SCH (10:11)
[2020-12-24] MEDS: diazePAM 5 MG TABLET PO PRN (10:13)
[2020-12-24] MEDS: MELATONIN 5 MG TABLETS PO SCH (22:24)
[2020-12-24] MEDS: THIAMINE HCL 100 MG TABLET (FP) PO SCH (22:24)
[2020-12-25] MEDS ORDERED: diazePAM 5 MG TABLET PO SCH (06:00)
[2020-12-25] MEDS: hydrOXYzine PAMOATE 25 MG CAPSULE (FP) PO SCH ×3 (06:24→14:43)
[2020-12-25 09:41] VITALS: BP 109/59; PULSE 82; TEMP 96.9
[2020-12-25] MEDS: PRENATAL VITAMINS W/ FOLIC ACID TABLET (FP) PO SCH (10:43)
[2020-12-25] MEDS: valACYclovir HCL 500 MG TABLET (FP) PO SCH (10:43)
[2020-12-25] MEDS: NICOTINE 14 MG/24 HOURS TOPICAL PATCH TD SCH (10:55)
[2020-12-26] MEDS ORDERED: diazePAM 5 MG TABLET PO ONE (06:00)
== END 2020-12-25 16:53 | disposition left against medical advice (07) | DRG 770 ==
LOC: YASAS 13:29 → Y3N 14:19 → Y6N 15:59
PROVIDERS: ADMIT Allergy & Immunology; ATTEND Allergy & Immunology
PROC: HZ2ZZZZ Detoxification Services for Substance Abuse Treatment (ICD-10-PCS; principal; 2020-12-22)
DX: F10.230 Alcohol dependence with withdrawal, uncomplicated (principal); F14.20 Cocaine dependence, uncomplicated; F13.20 Sedative, hypnotic or anxiolytic dependence, uncomplicated; F12.20 Cannabis dependence, uncomplicated; F17.210 Nicotine dependence, cigarettes, uncomplicated; F43.10 Post-traumatic stress disorder, unspecified; A53.0 Latent syphilis, unspecified as early or late; A60.09 Herpesviral infection of other urogenital tract; N76.0 Acute vaginitis; J45.909 Unspecified asthma, uncomplicated; Z62.810 Personal history of physical and sexual abuse in childhood; Z86.19 Personal history of other infectious and parasitic diseases; Z59.00 Homelessness unspecified; Z91.013 Allergy to seafood
CPT/HCPCS: 36415; 80053; 81025; 85027; 86593; 86780; C9803; U0003; U0005

== ENCOUNTER 2021-02-15 15:06 | Inpatient (IN) | payer OTHER ==
[2021-02-15 16:42] VITALS: BMI 25.4
[2021-02-15] MEDS ORDERED: MAG HYDROX/AL HYDROX/SIMETH 30 ML UNIT-DOSE CUP PO PRN (20:26)
[2021-02-15] MEDS ORDERED: P-EPHED 60MG/TRIPROLIDI 2.5MG TABLET PO PRN (20:26)
[2021-02-15] MEDS ORDERED: IBUPROFEN 400 MG TABLET (FP) PO PRN (20:26)
[2021-02-15] MEDS ORDERED: LOPERAMIDE HCL 2 MG CAPSULE PO PRN (20:26)
[2021-02-15] MEDS ORDERED: MAGNESIUM CITRATE 300 ML BOTTLE PO PRN (20:26)
[2021-02-15] MEDS ORDERED: ACETAMINOPHEN 325 MG TABLET (FP) PO PRN (20:26)
[2021-02-15] MEDS ORDERED: guaiFENesin 200 MG/10 ML 10 ML UNIT-DOSE CUPS PO PRN (20:26)
[2021-02-15] MEDS ORDERED: MAGNESIUM HYDROX 2400MG/30ML ORAL SUSPENSION 30 ML CUP PO PRN (20:26)
[2021-02-15] MEDS: THIAMINE HCL 100 MG TABLET (FP) PO SCH (22:53)
[2021-02-15] MEDS: MELATONIN 5 MG TABLETS PO SCH (22:53)
[2021-02-16] MEDS: PRENATAL VITAMINS W/ FOLIC ACID TABLET (FP) PO SCH (10:07)
[2021-02-16 10:11] LABS: BLOOD UREA NITROGEN 17.9 mg/dL (7-18); CALCIUM 8.4 mg/dL (8.5-10.1); HEMATOCRIT 36.6 % (32.4-45.2); MCH 26.8 pg (25.7-33.7); MCHC 32.8 g/dl (32.0-36.0); MEAN CELL VOLUME 81.7 fl (80-96); PLATELET COUNT 230 10^3/uL (134-434); RBC 4.48 M/mm3 (3.60-5.2); RDW 15.4 % (11.6-15.6); WHITE BLOOD COUNT 3.3 K/mm3 (4.0-10.0)
[2021-02-16 10:15] LABS: CREATININE 0.7 mg/dL (0.55-1.3)
[2021-02-16 10:16] LABS: BILIRUBIN,TOTAL 0.2 mg/dL (0.2-1); TOT PROT 5.5 g/dl (6.4-8.2)
[2021-02-16 18:42] LABS: EPI CELLS 22 /uL (0-25.1); HYALINE CASTS 1 /uL (0-3.1); URINE APPEARANCE CLEAR; URINE BACTERIA 87 /uL (0-1359); URINE BILIRUBIN NEGATIVE (NEGATIVE); URINE COLOR YELLOW; URINE GLUCOSE (UA) NEGATIVE (NEGATIVE); URINE KETONE NEGATIVE (NEGATIVE); URINE LEUK ESTERASE 1+ (NEGATIVE); URINE NITRITE NEGATIVE (NEGATIVE); URINE PROTEIN NEGATIVE (NEGATIVE); URINE RBC 21 /uL (0-23.9); URINE UROBILINOGEN 0.2 mg/dL (0.2-1.0); URINE WBC 15 /uL (0-25.8)
[2021-02-16] MEDS: MELATONIN 5 MG TABLETS PO SCH (21:43)
[2021-02-16] MEDS: THIAMINE HCL 100 MG TABLET (FP) PO SCH (21:43)
[2021-02-17 06:42] VITALS: BP 140/86; PULSE 63; TEMP 97.7
[2021-02-17] MEDS: PRENATAL VITAMINS W/ FOLIC ACID TABLET (FP) PO SCH (09:51)
== END 2021-02-17 14:40 | disposition left against medical advice (07) | DRG 770 ==
LOC: YASAS 15:06 → Y5N 21:49
PROVIDERS: ADMIT Allergy & Immunology; ATTEND Allergy & Immunology
PROC: HZ42ZZZ Group Counseling for Substance Abuse Treatment, Cognitive-Behavioral (ICD-10-PCS; principal; 2021-02-16)
DX: F10.20 Alcohol dependence, uncomplicated (principal); F14.20 Cocaine dependence, uncomplicated; F17.210 Nicotine dependence, cigarettes, uncomplicated; F31.9 Bipolar disorder, unspecified; F20.9 Schizophrenia, unspecified; R82.998 Other abnormal findings in urine; Z87.09 Personal history of other diseases of the respiratory system; Z86.19 Personal history of other infectious and parasitic diseases; Z59.00 Homelessness unspecified
CPT/HCPCS: 36415; 80053; 81003; 85027; 86593; 86780; C9803; U0003; U0005

== ENCOUNTER 2021-06-19 09:23 | Inpatient (IN) | payer OTHER ==
[2021-06-19] MEDS ORDERED: LOPERAMIDE HCL 2 MG CAPSULE PO PRN (09:40)
[2021-06-19] MEDS ORDERED: chlordiazePOXIDE HCL 25 MG CAPSULE PO PRN (09:40)
[2021-06-19] MEDS ORDERED: METHOCARBAMOL 500 MG TABLET PO PRN (09:40)
[2021-06-19] MEDS ORDERED: BISMUTH SUBSALICYLATE 524 MG/30 ML PO PRN (09:40)
[2021-06-19] MEDS ORDERED: ACETAMINOPHEN 325 MG TABLET (FP) PO PRN (09:40)
[2021-06-19] MEDS ORDERED: BENZOCAINE/MENTHOL (CHLORASEPTIC ) LOZENGE MM PRN (09:40)
[2021-06-19] MEDS ORDERED: IBUPROFEN 400 MG TABLET (FP) PO PRN (09:40)
[2021-06-19] MEDS ORDERED: MAGNESIUM CITRATE 300 ML BOTTLE PO PRN (09:40)
[2021-06-19] MEDS ORDERED: DICYCLOMINE HCL 10 MG CAPSULE PO PRN (09:40)
[2021-06-19] MEDS ORDERED: ONDANSETRON *ODT* 4 MG TABLET SL PRN (09:40)
[2021-06-19] MEDS ORDERED: MAGNESIUM HYDROX 2400MG/30ML ORAL SUSPENSION 30 ML CUP PO PRN (09:40)
[2021-06-19] MEDS ORDERED: MAG HYDROX/AL HYDROX/SIMETH 30 ML UNIT-DOSE CUP PO PRN (09:40)
[2021-06-19] MEDS ORDERED: ALBUTEROL SO4 HFA INHALER IH PRN (09:44)
[2021-06-19 10:25] VITALS: BMI 24.8
[2021-06-19] MEDS: hydrOXYzine PAMOATE 25 MG CAPSULE (FP) PO SCH ×4 (11:39→22:23)
[2021-06-19] MEDS: PRENATAL VITAMINS W/ FOLIC ACID TABLET (FP) PO SCH (11:39)
[2021-06-19] MEDS: chlordiazePOXIDE HCL 25 MG CAPSULE PO SCH ×3 (11:40→22:21)
[2021-06-19] MEDS: NICOTINE 14 MG/24 HOURS TOPICAL PATCH TD SCH (11:40)
[2021-06-19 15:05] LABS: HEMATOCRIT 36.9 % (32.4-45.2); HEMOGLOBIN 11.9 GM/dL (10.7-15.3); MCH 26.8 pg (25.7-33.7); MCHC 32.4 g/dl (32.0-36.0); MEAN CELL VOLUME 82.7 fl (80-96); MEAN PLT VOLUME 7.4 fl (7.5-11.1); PLATELET COUNT 312 10^3/uL (134-434); RBC 4.46 M/mm3 (3.60-5.2); WHITE BLOOD COUNT 4.2 K/mm3 (4.0-10.0)
[2021-06-19 15:08] LABS: ALBUMIN 3.6 g/dl (3.4-5.0)
[2021-06-19 15:11] LABS: CREATININE 0.9 mg/dL (0.55-1.3)
[2021-06-19 15:12] LABS: BILIRUBIN,TOTAL 0.5 mg/dL (0.2-1); TOT PROT 6.6 g/dl (6.4-8.2)
[2021-06-19] MEDS: ACETAMINOPHEN 325 MG TABLET (FP) PO PRN (17:24)
[2021-06-19] MEDS: MELATONIN 5 MG TABLETS PO SCH (22:20)
[2021-06-19] MEDS: THIAMINE HCL 100 MG TABLET (FP) PO SCH (22:20)
[2021-06-20] MEDS: hydrOXYzine PAMOATE 25 MG CAPSULE (FP) PO SCH ×5 (06:09→22:39)
[2021-06-20] MEDS: chlordiazePOXIDE HCL 25 MG CAPSULE PO SCH ×4 (06:09→22:39)
[2021-06-20] MEDS: NICOTINE 14 MG/24 HOURS TOPICAL PATCH TD SCH (10:19)
[2021-06-20] MEDS: PRENATAL VITAMINS W/ FOLIC ACID TABLET (FP) PO SCH (10:19)
[2021-06-20] MEDS: MELATONIN 5 MG TABLETS PO SCH (22:39)
[2021-06-20] MEDS: THIAMINE HCL 100 MG TABLET (FP) PO SCH (22:39)
[2021-06-21] MEDS: hydrOXYzine PAMOATE 25 MG CAPSULE (FP) PO SCH ×5 (06:51→23:15)
[2021-06-21] MEDS: chlordiazePOXIDE HCL 25 MG CAPSULE PO SCH ×4 (06:52→23:14)
[2021-06-21] MEDS: NICOTINE 14 MG/24 HOURS TOPICAL PATCH TD SCH (10:10)
[2021-06-21] MEDS: PRENATAL VITAMINS W/ FOLIC ACID TABLET (FP) PO SCH (10:11)
[2021-06-21 14:08] LABS: SARS-CoV-2 NAA Not Detected (Not Detected)
[2021-06-21] MEDS: MELATONIN 5 MG TABLETS PO SCH (23:14)
[2021-06-21] MEDS: THIAMINE HCL 100 MG TABLET (FP) PO SCH (23:15)
[2021-06-22] MEDS ORDERED: chlordiazePOXIDE HCL 10 MG CAPSULE PO PRN
[2021-06-22] MEDS: chlordiazePOXIDE HCL 10 MG CAPSULE PO SCH ×4 (05:13→23:15)
[2021-06-22] MEDS: hydrOXYzine PAMOATE 25 MG CAPSULE (FP) PO SCH ×5 (05:14→23:15)
[2021-06-22] MEDS: NICOTINE 10 MG CARTRIDGE (INHALER) IH PRN ×3 (05:15→18:26)
[2021-06-22] MEDS: ACETAMINOPHEN 325 MG TABLET (FP) PO PRN (05:18)
[2021-06-22] MEDS: PRENATAL VITAMINS W/ FOLIC ACID TABLET (FP) PO SCH (11:25)
[2021-06-22] MEDS: NICOTINE 14 MG/24 HOURS TOPICAL PATCH TD SCH (11:25)
[2021-06-22] MEDS: THIAMINE HCL 100 MG TABLET (FP) PO SCH (23:15)
[2021-06-22] MEDS: MELATONIN 5 MG TABLETS PO SCH (23:15)
[2021-06-23] MEDS ORDERED: chlordiazePOXIDE HCL 10 MG CAPSULE PO SCH (05:00)
[2021-06-23] MEDS: hydrOXYzine PAMOATE 25 MG CAPSULE (FP) PO SCH ×2 (06:17→10:35)
[2021-06-23] MEDS: NICOTINE 10 MG CARTRIDGE (INHALER) IH PRN (06:19)
[2021-06-23 08:54] VITALS: BP 106/68; PULSE 66; TEMP 97.9
[2021-06-23] MEDS ORDERED: SILVER SULFADIAZINE 1% TOP CREAM 50 GM JAR TP SCH (10:30)
[2021-06-23] MEDS: NICOTINE 14 MG/24 HOURS TOPICAL PATCH TD SCH (10:37)
[2021-06-23] MEDS: PRENATAL VITAMINS W/ FOLIC ACID TABLET (FP) PO SCH (10:37)
[2021-06-24] MEDS ORDERED: chlordiazePOXIDE HCL 10 MG CAPSULE PO ONE (05:00)
== END 2021-06-23 11:49 | disposition other institution (70) | DRG 774 ==
LOC: YASAS 09:23 → Y3N 10:45
PROVIDERS: ADMIT Allergy & Immunology; ATTEND Allergy & Immunology
PROC: HZ2ZZZZ Detoxification Services for Substance Abuse Treatment (ICD-10-PCS; principal; 2021-06-19)
DX: F10.230 Alcohol dependence with withdrawal, uncomplicated (principal); F14.20 Cocaine dependence, uncomplicated; F12.20 Cannabis dependence, uncomplicated; F17.210 Nicotine dependence, cigarettes, uncomplicated; F20.9 Schizophrenia, unspecified; F43.10 Post-traumatic stress disorder, unspecified; R76.8 Other specified abnormal immunological findings in serum; Z86.19 Personal history of other infectious and parasitic diseases; Z99.89 Dependence on other enabling machines and devices; Z91.013 Allergy to seafood
CPT/HCPCS: 36415; 80053; 81025; 85027; 86593; 86780; 87811; C9803-CS; U0003; U0005